=== PATIENT | male | born 1995 | race African-American/Black ===

== ENCOUNTER 2017-07-05 19:41 | Emergency (ER) | payer MEDICAID, OTHER ==
[~2017-07-05] VITALS: Ht 172.7 cm; Wt 65.9 kg
[2017-07-05 21:15] VITALS: BP 120/63
== END 2017-07-05 22:08 | disposition home or self-care (01) ==
LOC: EMS 19:43
DX: S93.402A Sprain of unspecified ligament of left ankle, initial encounter (principal); F17.210 Nicotine dependence, cigarettes, uncomplicated; F12.90 Cannabis use, unspecified, uncomplicated; F19.90 Other psychoactive substance use, unspecified, uncomplicated; W50.0XXA Accidental hit or strike by another person, initial encounter; Y93.67 Activity, basketball; Y92.89 Other specified places as the place of occurrence of the external cause; Y99.8 Other external cause status
CPT/HCPCS: 99284